=== PATIENT | female | born 1995 | race Caucasian/White ===

== ENCOUNTER 2018-09-18 15:13 | Emergency (ER) | payer MEDICAID ==
[~2018-09-18] VITALS: Ht 157.5 cm; Wt 61.4 kg
[2018-09-18] MEDS ORDERED: BENZOCAINE/MENTHOL LOZENGE PO ONE (15:45)
[2018-09-18] MEDS ORDERED: ACETAMINOPHEN 500 MG TABLET PO ONE (15:45)
[2018-09-18] MEDS ORDERED: BENZONATATE 100 MG CAPSULE PO ONE (15:45)
[2018-09-18 17:00] VITALS: BP 119/76
== END 2018-09-18 17:00 | disposition home or self-care (01) ==
LOC: EMS 15:13
DX: J02.8 Acute pharyngitis due to other specified organisms (principal); B96.89 Other specified bacterial agents as the cause of diseases classified elsewhere; Z79.899 Other long term (current) drug therapy
CPT/HCPCS: 87430